=== PATIENT | female | born 1980 | race Caucasian/White ===

== ENCOUNTER 2021-01-21 18:44 | Emergency (ER) | payer SELFPAY ==
[~2021-01-21] VITALS: Ht 157.5 cm; Wt 108.0 kg
[2021-01-21 19:47] LABS: HEMOGLOBIN 15.9 gm/dl (12.3-15.3); RED BLOOD COUNT 5.03 M/UL (4.00-5.10); WHITE BLOOD COUNT 5.9 K/UL (4.5-11.0)
[2021-01-21 20:17] LABS: BUN/CREATININE RATIO 7 (0-10)
[2021-01-21] MEDS ORDERED: DECADRON6 MG PO (22:27)
[2021-01-21] MEDS ORDERED: ZOFRAN ODT 4 MG4 MG PO (22:27)
== END 2021-01-22 01:40 | disposition home or self-care (01) ==
LOC: ER1 18:44
PROVIDERS: Physician Assistant
DX: Z23 Encounter for immunization (principal); U07.1 COVID-19
CPT/HCPCS: 71045; 80053; 83605; 83880; 84703; 85025; 85652; 86140; 96365; 96375; 99283; J1100; J1885; J2405; J2550; J7030; M0243